=== PATIENT | female | born 1985 | race Caucasian/White ===

== ENCOUNTER → 2017-01-14 | Outpatient (CLI) | payer OTHER ==
[~2017-01-14] MED LIST: AMOX500C PO; AZIT600T PO; PREN1CAP7 PO; ZANT150T2 PO
[2017-01-14 14:35] LABS: AUTOMATED NEUTROPHIL # 6.4 TH/MM3 (1.8-7.7); BASOPHIL % 0.4 % (0.0-2.0); EOSINOPHIL # 0.1 TH/MM3 (0-0.4); EOSINOPHIL % 0.9 % (0.0-4.0); HEMATOCRIT 34.1 % (35.0-46.0); HEMO FLAGS DIFF FINAL; LYMPH % 21.8 % (9.0-44.0); LYMPHOCYTE # 1.9 TH/MM3 (1.0-4.8); MEAN CELL VOLUME 95.1 FL (80.0-100.0); MEAN CORPUSCULAR HEMOGLOBIN 32.6 PG (27.0-34.0); MEAN CORPUSCULAR HGB CONC 34.3 % (32.0-36.0); MONO % 4.1 % (0.0-8.0); NEUT % 72.8 % (16.0-70.0); PLATELET COUNT 196 TH/MM3 (150-450); RED BLOOD COUNT 3.59 MIL/MM3 (4.00-5.30); WHITE BLOOD COUNT 8.8 TH/MM3 (4.0-11.0)
[2017-01-14 15:09] LABS: RUBELLA IGG ANTIBODY 20.8 IU/mL (10.0-500.0); RUBELLA STATUS IMMUNE (IMMUNE)
--- NOTE | 2017-01-15 11:14 | EKG ---
Date Performed: 01/14/2017 Time Performed: 14:32:28 PTAGE: 31 years EKG: Sinus arrhythmia. Septal T wave changes are nonspecific Borderline ECG NO PREVIOUS TRACING DOCTOR: David Byrne Interpretating Date/Time 01/15/2017 11:12:30
== END ==
LOC: HCAV 13:57
PROVIDERS: ATTEND Obstetrics & Gynecology
DX: O99.419 Diseases of the circulatory system complicating pregnancy, unspecified trimester (principal); O23.40 Unspecified infection of urinary tract in pregnancy, unspecified trimester; B96.89 Other specified bacterial agents as the cause of diseases classified elsewhere; Z3A.00 Weeks of gestation of pregnancy not specified
CPT/HCPCS: 36415; 84443; 85025; 86592; 86703; 86762; 86787; 86850; 86900; 86901; 87086; 87340; 93005

== ENCOUNTER 2017-05-15 11:48 | Emergency (ER) | payer MEDICAID, OTHER ==
[~2017-05-15] VITALS: Ht 162.6 cm; Wt 72.5 kg
[~2017-05-15 11:48] MED LIST changes: -AMOX500C PO; -AZIT600T PO; +PENI500T PO; +TERC0.4C2 VAGINAL
--- NOTE | 2017-05-15 12:56 | PD ---
HPI Chief Complaint bad headaches x8 days Date Seen: May 15, 2017 Time Seen: 12:30 (Fox Suárez MD R1) Travel History International Travel<30 Days: No Contact w/Intl Traveler<30Days: No Known Affected Area: No (Fox Suárez MD R1) History of Present Illness HPI Ms Menendez is a 31YO at 26/3 weeks who presents for bad headaches x8 days following wisdom tooth extraction 10 days ago. Pt states moving her head, coughing, sneezing or any jarring action triggers an excruciating headache for 2 -3 minutes that begins in the inferior left occiput and quickly spreads anteriorly to become a global headache. Pt has associated photophobia and sometimes aura with wavy lines in the left peripheral area. Pt has been back to her dentist and was not able to reproduce sxs by pressure in the empty left molar socket or by palpation of the left mandible. Of note, pt was recently identified with sinus arrhythmia by EKG and ECHO ordered; however, ECHO has not been performed with concern for stage of . Pt gets palpitations; however, has not felt any today. Pt recently treated for Chlamydia with her partner and has since had test of cure showing no further disease. Denies CP, V/ D, DVT pain, but is feeling a little nauseous today and admits to being SOB on exertion occasionally due to her . Weeks Gestation: 26 Para: 0 : 2 Last Menstrual Period: Nov 12, 2016 Miscarriage: 0 : 1 (Fox Suárez MD R1) HPI Patient seen and evaluated with resident under direct supervision, agree with assessment and plan. 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 Lactobacillus in urine Chlamydia during with test of cure showing no disease EKG this indicating sinus arrhythmia (Fox Suárez MD R1) Past Surgical History Narrative Surgical LEEP in her 20s [place] tooth extraction 10 days ago (Fox Suárez MD R1) Family History Narrative Family History Father - living, DM and seizure DO Mother - living, cancer on maternal side (Fox Suárez MD R1) Social History Alcohol Use: No (denies use during ; however, seizure approx 1 year ago related to EtOH withdrawal) Tobacco Use: No (quit 7 years ago) Substance Abuse: No (Fox Suárez MD R1) Allergies-Medications (Allergen,Severity, Reaction): Coded Allergies: No Known Allergies (Unverified Adverse Reaction, Unknown, 04/28/17) Home Meds Active Scripts Terconazole Vaginal Cream (Terconazole Vaginal Cream) 0.4 % Cream, 1 APPL VAGINAL HS for Fungal Infection, #45 GM 0 Refills For seven days Prov:Daniela Meadows 04/20/17 Ranitidine (Zantac) 150 Mg Tab, 150 MG PO BID for Reduce Stomach Acid, #60 TAB 9 Refills Prov:Daniela Meadows 02/05/17 W/O Vit A W/ Fe Fumar (Citranatal [place]) 27-1-260 Mg Cap, 1 CAP PO DAILY for Nutritional Supplement, #30 CAP 11 Refills Prov:Daniela Meadows 01/08/17 Reported Medications Penicillin V Potassium (Penicillin V Potassium) 500 Mg Tab, 500 MG PO Q6H for Infection, TAB 0 Refills 04/28/17 Narrative Medication Pt states she currently only takes PNV, Calcium supplement and Biotene (Fox Suárez MD R1) Review of Systems General / Constitutional: No: Fever, Chills Eyes: Photophobia (asso/w headaches), No: Blurred Vision, Visual changes HENT: Headaches (excruciating headaches 2-3 minutes in duration triggered by jarring movements such as sneezing, coughing, or bending with head lower than body; pulsatile in nature) Cardiovascular: Irregular Rhythm, Palpitations, No: Chest Pain or Discomfort, Syncope Respiratory: Short of Breath, No: Cough Gastrointestinal: Nausea, No: Vomiting, Diarrhea, Abdominal Pain Genitourinary: No: Urgency, Frequency, Dysuria, Pelvic Pain, Discharge, Vaginal Bleeding Musculoskeletal: No: Weakness Skin: No Rash Neurologic: Dizziness, Headache (as above), Seizures (1 year ago asso/w EtOH withdrawal; has had similar aura twice during not followed by seizure) , No: Weakness, Syncope (Fox Suárez MD R1) Physical Exam Narrative GENERAL: Well-nourished, well-developed patient in NAD sitting up in bed. SKIN: Warm and dry. No rash or lesions. HEAD: Normocephalic and atraumatic. EYES: No scleral icterus. No injection or drainage. EOMI. Slight left gaze nystagmus noted in right eye when tracking to left. Visual tracking triggers dizziness. ENT: No nasal drainage noted. Mucous membranes pink. Airway patent. NECK: Supple, trachea midline. No JVD or lymphadenopathy. CARDIOVASCULAR: Regular rate and rhythm without murmur, gallop, or rub. RESPIRATORY: Breath sounds equal bilaterally in all lung moalley. No accessory muscle use. ABDOMEN/GI: Abdomen soft, non-tender, bowel sounds present, no rebound, no guarding Gravid to 26 weeks size Fundal Height: [-] GENITOURINARY: Cervix: [-] Dilatation: [-] Effacement: [-] Station: [-] Presentation: [-] Membranes: intact Uterine Contractions: none FHT's: Category: 1 Baseline: 140s Reactive: yes Variability: moderate Decels: none EXTREMITIES: No cyanosis or edema. BACK: Nontender without obvious deformity. No CVA tenderness. NEUROLOGICAL: Awake and alert. Motor and sensory grossly within normal limits. Five out of 5 muscle strength in all muscle groups. Normal speech. (Fox Suárez MD R1) Data Data Vital Signs Reviewed: Yes Orders Orders Vital Signs (Adult) .ON ADMISSION (05/15/17 12:41) ^ Labor Status (05/15/17 12:41) Urinalysis - C+S If Indicated (05/15/17 12:41) ^ Non Stress Test (05/15/17 12:41) ^ Hydration (05/15/17 12:41) Cbc No Diff, Includes Plts (05/15/17 12:41) Comprehensive Metabolic Panel (05/15/17 12:41) Ob/Psych Drug Screen, Urine (05/15/17 12:41) (Fox Suárez MD R1) MDM Medical Record Reviewed: Yes Narrative Course / MDM 31YO at 26/3 weeks presents with excruciating headaches x8 days following wisdom tooth extraction requiring further neurological workup. Pt with viable and reassuring FHT with BL in 140s, reactive, moderate variability, but no contractions, leakage of fluid or vaginal bleeding. Pt has had neurological workup at [facility] approx 1 year ago for likely EtOH withdrawal seizure. Pt denies any EtOH intake during this . PLAN: -Transfer to ED for neurological workup Pt seen and discussed with Lionel Ji and Nik (Fox Suárez MD R1) Diagnosis Diagnosis: Primary Impression: 26 weeks gestation of Additional Impression: Headache in , antepartum Disposition: 01 DISCHARGE HOME Condition: Stable Fox Suárez MD R1 May 15, 2017 12:56 Osmin Ji MD May 15, 2017 14:09
[2017-05-15 13:22] VITALS: BP 111/67; PULSE 74; RESP 16; TEMP 98.5; O2SAT 98
[2017-05-15 13:41] LABS: BLOOD, URINE NEG (NEG); COMMENT (UR) CULT NOT INDICATED; CULTURE IF INDICATED CULT NOT INDICATED; GLUCOSE,URINE NEG (NEG); KETONE, URINE TRACE mg/dL (NEG); MUCUS URINE FEW /lpf (OCC); NITRITE,URINE NEG (NEG); PH, URINE 6.5 (5.0-8.5); SQUAMOUS EPITHELIAL CELL URINE <1 /hpf (0-5); URINE COLOR LIGHT-YELLOW (YELLW/STRAW)
--- NOTE | 2017-05-15 14:08 | PD ---
HPI Chief Complaint: Headache Time Seen by Provider: 13:36 Travel History International Travel<30 days: No Contact w/Intl Traveler<30days: No Traveled to known affect area: No History of Present Illness HPI 31-year-old female presents to emergency Department with complaint of headache to the left occipital area 8 days, 10 days after having a tooth extraction. Was seen by her dentist today and had x-rays and manipulation of the area of the tooth with palpation with a normal exam, per the patient. She denies jaw pain or tooth pain. Reports sudden onset and severe at times. Fluctuates in intensity. 10/10 at its worst. Rates headache 4/10 at this time. Denies photophobia. Reports photophobia. Reports nausea in the mornings without vomiting. Denies fevers. Pain radiates forward. She describes pain as shooting and throbbing. Denies change in mentation, confusion, disorientation, slurred speech, focal deficits or weakness. Reports seeing left-sided colored wavy lines last night for 2-3 hours. Headaches are worse with movement such as standing up, sitting down, coughing, sneezing. Has been taking Tylenol with no symptom relief. [employer] is Dr. Rockwell. Goes to [facility] for primary care. No allergies. History of seizures related to drinking alcohol. Has no other medical complaints. No other modifying factors or associated signs and symptoms. PFSH Past Medical History Medical History: Denies Significant Hx Gestational Age in Weeks: 26 ?: Social History Alcohol Use: No Tobacco Use: No (quit 7 years ago) Allergies-Medications (Allergen,Severity, Reaction): Coded Allergies: No Known Allergies (Unverified Adverse Reaction, Unknown, 04/28/17) Reported Meds & Prescriptions Reported Meds & Active Scripts Active Terconazole Vaginal Cream 0.4 % Cream 1 Appl VAGINAL HS For seven days Zantac (Ranitidine HCl) 150 Mg Tab 150 Mg PO BID Citranatal [place] ( W/O Vit A W/ Fe Fumar) 27-1-260 Mg Cap 1 Cap PO DAILY Reported Penicillin V Potassium 500 Mg Tab 500 Mg PO Q6H Review of Systems Except as stated in HPI: all other systems reviewed are Neg Physical Exam Narrative GENERAL: Well-nourished, well-developed patient, in no acute distress SKIN: Warm and dry. Patchy, nonraised, erythemic rash noted to the base of the scalp; no vesicular areas noted. HEAD: Atraumatic. Normocephalic. Facial droop noted. Tongue midline. Nose test normal. EYES: Pupils equal and round at 4 mm with brisk reaction. No scleral icterus. No injection or drainage. PERRLA. EOMI. ENT: Mucosa pink and moist. Airway patent. NECK: Trachea midline. No lymphadenopathy. CARDIOVASCULAR: Regular rate. RESPIRATORY: No accessory muscle use. GASTROINTESTINAL: Rounded; MUSCULOSKELETAL: No obvious deformities. No clubbing. No cyanosis. No edema. NEUROLOGICAL: Awake and alert. Oriented 4. No obvious cranial nerve deficits. Motor grossly within normal limits. Normal speech. No ataxia. No mid -line drift. No upper or lower extremity drift. Moves all extremities. 5/5 strength to all extremities. PSYCHIATRIC: Appropriate mood and affect; insight and judgment normal. Data Data Last Documented VS Vital Signs Date Time Temp Pulse Resp B/P (MAP) Pulse Ox O2 Delivery O2 Flow Rate FiO2 05/15/17 13:39 70 16 98 Room Air 05/15/17 13:22 98.5 111/67 (82) Orders Orders Vital Signs (Adult) .ON ADMISSION (05/15/17 12:41) ^ Labor Status (05/15/17 12:41) Urinalysis - C+S If Indicated (05/15/17 12:41) ^ Non Stress Test (05/15/17 12:41) ^ Hydration (05/15/17 12:41) Ob/Psych Drug Screen, Urine (05/15/17 12:41) Attending Discharge Order (05/15/17 ) Ct Brain W/O Iv Contrast(Rout) (05/15/17 ) Ed Discharge Order (05/15/17 15:57) Labs Laboratory Tests Test 05/15/17 12:00 Urine Color LIGHT-YELLOW Urine Turbidity CLEAR Urine pH 6.5 Urine Specific [place] 1.002 Urine Protein NEG mg/dL Urine Glucose (UA) NEG mg/dL Urine Ketones TRACE mg/dL Urine Occult Blood NEG Urine Nitrite NEG Urine Bilirubin NEG Urine Urobilinogen LESS THAN 2.0 MG/DL Urine Leukocyte Esterase NEG Urine RBC LESS THAN 1 /hpf Urine WBC LESS THAN 1 /hpf Urine Squamous Epithelial Cells <1 /hpf Urine Mucus FEW /lpf Microscopic Urinalysis Comment CULT NOT INDICATED Urine Opiates Screen NEG Urine Barbiturates Screen NEG Urine Amphetamines Screen NEG Urine Benzodiazepines Screen NEG Urine Cocaine Screen NEG Urine Cannabinoids Screen POS MDM Medical Decision Making Medical Screen Exam Complete: Yes Emergency Medical Condition: Yes Medical Record Reviewed: Yes Differential Diagnosis Cephalgia, acute headache, referred pain, shingles Narrative Course 26 week , 31-year-old female, sent from OB ED after clearance with complaint of headache. Neuro exam unremarkable. Discussed CT scan and patient verbally consented for CT head scan. 1531: CT head with no acute findings. Urinalysis ordered in the [facility] and without signs of infection. Drug screen ordered an OB ED and positive cannabinoids; complete drug panel pending. Discussed CT findings with the patient. I offered the patient medication for her headache and she declined. Instructed patient to follow up with neurology, [facility], primary care provider. Instructed patient to follow up with primary care provider. Patient verbalizes understanding and agreement with treatment plan. Patient is medically cleared and stable for discharge. Discussed reasons to return to the emergency department. Patient agrees with treatment plan. The patients vital signs are stable and the patient is stable for outpatient follow-up and treatment. Patient discharged home, stable and in no acute distress. Diagnosis Primary Impression: Headache in , antepartum Referrals: Neurologist [employer] Primary Care Physician Patient Instructions: Acute Headache (ED), General Instructions Departure Forms: Tests/Procedures Additional Instructions: Tylenol as directed and as needed to reduce headache Get plenty of rest: do not over sleep rest and relax in a dark, quiet room as needed Place an ice pack on the back of her neck to reduce head pain as needed Keep a headache diary of what triggers her headaches and what treatment is most effective Avoid identifiable triggers Avoid smoking, alcohol and caffeine consumption Reduce stress Follow-up with primary care provider within 1-2 days Follow-up with [facility] Follow-up with neurology Return immediately to the emergency department with worsening symptoms Med/Other Pt SpecificInfo: No Change to Meds, No Meds Exist/No RX given Disposition: 01 DISCHARGE HOME Condition: Stable Fernanda Ramírez May 15, 2017 14:08
--- NOTE | 2017-05-15 14:53 | RADRPT ---
EXAM DATE/TIME: 05/15/2017 14:40 [facility] COMPARISON: No previous studies available for comparison. INDICATIONS : Headaches for ten days. RADIATION DOSE: 31.10 CTDIvol (mGy) MEDICAL HISTORY : None SURGICAL HISTORY : None. ENCOUNTER: Initial ACUITY: 2 weeks PAIN SCALE: 9/10 LOCATION: Bilateral cranial TECHNIQUE: Multiple contiguous axial images were obtained of the head. Using automated exposure control and adj ustment of the mA and/or kV according to patient size, radiation dose was kept as low as reasonably a chievable to obtain optimal diagnostic quality images. DICOM format image data is available electro nically for review and comparison. FINDINGS: CEREBRUM: The ventricles are normal. No evidence of midline shift, mass lesion, hemorrhage or acute infarction . No extra-axial fluid collections are seen. POSTERIOR FOSSA: The cerebellum and brainstem are intact. The 4th ventricle is midline. The cerebellopontine angle i s unremarkable. EXTRACRANIAL: Visualized sinuses are clear. SKULL: The calvaria is intact. No evidence of skull fracture. CONCLUSION: Negative noncontrast head CT. Matt Jorgensen MD on May 15, 2017 at 14:50 Board Certified Radiologist. This report was verified electronically.
[2017-05-20 09:34] LABS: BATH SALTS (MDPV) UR NEG (NEG); ECSTASY (MDMA) UR NEG (NEG); HEROIN (6-ACETYLMORPHINE) UR NEG (NEG); K2 SPICE UR NEG (NEG); OBGABAPENTIN UR NEG (NEG); OBHYDROMORPHONE U NEG (NEG); OBMETHADONE UR NEG (NEG); PHENCYCLIDINE URINE NEG (NEG)
== END 2017-05-15 16:44 | disposition home or self-care (01) ==
LOC: HOBED 11:48 → NEPD 16:44
DX: O26.892 Other specified pregnancy related conditions, second trimester (principal); R51 Headache; Z3A.26 26 weeks gestation of pregnancy; R56.9 Unspecified convulsions; Z79.899 Other long term (current) drug therapy
CPT/HCPCS: 70450; 80307; 81001; 99283; G0481